=== PATIENT | female | born 1965 | race Caucasian/White ===

== ENCOUNTER → 2020-04-17 16:25 | Outpatient (BNVA) | payer OTHER, SELFPAY | PROVIDERS: Family Provider Family Medicine; Visit Provider Family Medicine | DX: E03.9 Hypothyroidism, unspecified (principal); F41.9 Anxiety disorder, unspecified; K21.9 Gastro-esophageal reflux disease without esophagitis; I48.0 Paroxysmal atrial fibrillation; G47.10 Hypersomnia, unspecified; K21.0 Gastro-esophageal reflux disease with esophagitis | CPT/HCPCS: 84439; 84443; 84481 ==

== ENCOUNTER 2020-10-13 13:43 | Outpatient (CLI) | payer OTHER, SELFPAY ==
--- NOTE | 2020-10-13 13:50 | MM_ITS ---
WS: [id number] BILATERAL DIGITAL SCREENING MAMMOGRAPHY WITH CAD CLINICAL INFORMATION: SCREENING HISTORY: Screening mammogram. No current complaints. COMPARISON: TECHNIQUE: Bilateral CC and MLO views. FINDINGS: Bilateral breast implants. The breasts are composed of heterogeneous fibroglandular density tissue, which can limit the detectio n of small underlying mass lesions. Asymmetric density right breast along the posterior nipple line h as decreased in size and is less dense today. No suspicious mass, asymmetry, calcifications, or archi tectural distortion. No evidence of malignancy. MM/[place] [id number] IMPRESSION: BI-RADS: 2-Benign FOLLOW UP: 1 Year Follow-up Recommend return to annual screening mammography.
== END 2020-10-13 13:44 | disposition home or self-care (01) ==
LOC: RADSHAW 13:47
PROVIDERS: PCP Family Medicine; Visit Provider Obstetrics & Gynecology
DX: Z12.31 Encounter for screening mammogram for malignant neoplasm of breast (principal)
CPT/HCPCS: 77067

== ENCOUNTER → 2021-05-14 10:06 | Outpatient (BNVA) | payer OTHER, SELFPAY | PROVIDERS: PCP Family Medicine; Visit Provider Family Medicine | DX: E03.9 Hypothyroidism, unspecified (principal); Z13.6 Encounter for screening for cardiovascular disorders | CPT/HCPCS: 80053; 80061; 84443 ==

== ENCOUNTER → 2021-10-03 00:01 | Outpatient (BNVA) | payer OTHER, SELFPAY | PROVIDERS: PCP Family Medicine; Visit Provider Family Medicine | DX: R74.8 Abnormal levels of other serum enzymes (principal) | CPT/HCPCS: 80053 ==

== ENCOUNTER 2021-10-16 09:57 | Outpatient (CLI) | payer OTHER, SELFPAY ==
--- NOTE | 2021-10-16 10:30 | MM_ITS ---
WS: [id number] BILATERAL SCREENING MAMMOGRAM WITH DILSHAD DISPLACEMENT VIEWS. CAD PERFORMED. HISTORY: Z12.39 - Encounter for other screening for malignant neoplasm... COMPARISON: 10/13/2020, 03/23/2019 Bilateral craniocaudal and mediolateral like views are performed. Dilshad displacement views in CC and MLO projection also performed. Breasts composition: There are scattered areas of fibroglandular density. Implants are intact and retropectoral. Asymmetry in the anterior lateral LEFT breast is stable. No ne w calcification or mass. MM/[place] [id number] IMPRESSION: BI-RADS: 2-Benign FOLLOW-UP: 1 Year Follow-up
== END 2021-10-16 09:58 | disposition home or self-care (01) ==
LOC: RADSHAW 09:59
PROVIDERS: PCP Family Medicine; Visit Provider Nurse Practitioner Women's Health
DX: Z12.39 Encounter for other screening for malignant neoplasm of breast (principal)
CPT/HCPCS: 77067

== ENCOUNTER → 2022-05-13 09:33 | Outpatient (BNVA) | payer OTHER, SELFPAY | PROVIDERS: PCP Family Medicine; Visit Provider Family Medicine | DX: K21.9 Gastro-esophageal reflux disease without esophagitis (principal); E03.9 Hypothyroidism, unspecified; F41.9 Anxiety disorder, unspecified; I48.0 Paroxysmal atrial fibrillation; Z13.1 Encounter for screening for diabetes mellitus; Z13.6 Encounter for screening for cardiovascular disorders; G47.00 Insomnia, unspecified | CPT/HCPCS: 80053; 80061; 84439; 84443; 84481 ==

== ENCOUNTER → 2022-06-05 14:10 | Outpatient (BNVA) | payer OTHER, SELFPAY | PROVIDERS: PCP Family Medicine; Visit Provider Nurse Practitioner Women's Health | DX: Z01.419 Encounter for gynecological examination (general) (routine) without abnormal findings (principal); N95.0 Postmenopausal bleeding | CPT/HCPCS: 87624 ==

== ENCOUNTER → 2022-06-07 14:28 | Outpatient (BNVA) | payer OTHER, SELFPAY | PROVIDERS: PCP Family Medicine; Visit Provider Nurse Practitioner Women's Health | DX: N95.0 Postmenopausal bleeding (principal) | CPT/HCPCS: 76830 ==

== ENCOUNTER → 2022-06-17 10:28 | Outpatient (BNVA) | payer OTHER, SELFPAY | PROVIDERS: PCP Family Medicine; Visit Provider Family Medicine | DX: N17.9 Acute kidney failure, unspecified (principal); N95.0 Postmenopausal bleeding | CPT/HCPCS: 80048 ==

== ENCOUNTER 2022-07-02 12:54 | Day surgery (SDC) | payer OTHER, SELFPAY ==
[2022-07-01 13:12] VITALS: BMI 29.7
[2022-07-02] VITALS (7 sets, daily range): BP systolic 123–162; BP diastolic 75–100; PULSE 72–102; RESP 16–18; TEMP 36.2–36.7; O2SAT 97–100
--- NOTE | 2022-07-02 12:32 | ANES.PREANE2 ---
Pre-Anesthetic Assessment Height/Weight: Height 1.65 m Weight 81.193 kg Operation Date: 07/02/22 14:25 Proposed Procedures p Hysteroscopy, dilation and curettage with Myosure 34661, 28858, 42117,R93.89,N95.0(Not Applicable) - Kristen Michaels MD s Dilation And Curettage (D&C)(Not Applicable) - Kristen Michaels MD Familial anesthetic complications: none Was Beta Daniella taken within 24 hours: N/A Was Clonidine taken within 24 hours: N/A Social No alcohol and No tobacco Exam alert, oriented x 3, clear to auscultation bilaterally and regular rate & rhythm Airway Submandibular: within normal limits Cervical ROM: within normal limits Mallampati: Class II Dentition: full CV/HEM Atrial Fibrillation and Hypertension GI Gastroesophageal Reflux Disease Metabolic Thyroid Disease Neuropsych Anxiety and Depression Anesthetic Plan ASA status: 3 Anesthesia: General Medications/Allergies Home Medications Medication Instructions Recorded Confirmed Last Taken Type aspirin 325 mg tablet 325 mg PO DAILY 04/17/20 07/01/22 Unknown History multivitamin 1 tab PO DAILY 04/17/20 07/01/22 Unknown History estradiol-norethindrone acet 0.5 1 tab PO DAILY #84 tabs 12/25/21 07/01/22 Unknown Rx mg-0.1 mg tablet diltiazem HCl 180 mg 180 mg PO DAILY 90 days #90 caps 05/13/22 07/01/22 Unknown Rx capsule,extended release 24 hr duloxetine 30 mg capsule,delayed 30 mg PO DAILY 90 days #90 caps 05/13/22 07/01/22 Unknown Rx release duloxetine 60 mg capsule,delayed 60 mg PO DAILY 90 days #90 caps 05/13/22 07/01/22 Unknown Rx release levothyroxine 50 mcg tablet 50 mcg PO DAILY 90 days #90 tabs 05/13/22 07/01/22 Unknown Rx pantoprazole 40 mg tablet,delayed 40 mg PO BID 90 days #180 tabs 05/13/22 07/01/22 Unknown Rx release Allergies Allergy/AdvReac Type Severity Reaction Status Date / Time No Known Allergies Allergy Verified 07/01/22 13:07 [facility] Anesthesia Medical History Acquired hypothyroidism Anxiety GERD (gastroesophageal reflux disease) Patient had an EGD in follow-up 2018 which showed gastritis. When she weans down on the PPI she has recurrent symptoms. We will continue current PPI. She uses Carafate only for occasional flareups from food. Plan for repeat EGD in 2 years for monitoring. History of vitamin D deficiency No pertinent past medical history neghx:htn,dm,dvt/pe PCP: Beatrice Naranjo Paroxysmal atrial fibrillation Surgical History H/O breast augmentation (~2011) Saline, under the muscle History of elbow surgery (~2018) Left elbow surgery with bursa removal [place] [facility] [place] History of hysteroscopy (~07/2018) Hysteroscopy, D&C, polypectomy. Benign findings. [facility] History of tubal ligation (~1988) Hx of cataract surgery Bilateral S/P ACL repair (~10/2016) Arthroscopic right knee. S/P gastric bypass (03/08/18) Laparoscopic gastric sleeve. Performed in [place]. Family History Mother Hypertension Hyperlipidemia Cancer Lung CA Grandmother Hypertension Maternal Hyperlipidemia Maternal Heart disease Maternal Family/Other No problems noted. Sister Thyroid disease Denies family history of Colon cancer Ovarian cancer Diabetes Breast cancer Uterine cancer Stroke Social History Smoking and tobacco status: former smoker Other details last substance use: Denies drug use Female Reproductive History Spontaneous abortions: No Data Anesthesia Cardiac Studies: No Data to Display
[2022-07-02] MEDS: sodium chloride 0.9% 1,000 ML 30 ML IV (13:25)
--- NOTE | 2022-07-02 13:32 | W.PM.OPSUD ---
Surgery/Procedure H&P Update DATE OF PROCEDURE: July 02, 2022 DATE H&P PERFORMED: 06/27/22 H&P UPDATE INFORMATION: I have reviewed H&P completed within last 30 days, I have examined patient prior to procedure and No changes to prior documentation PREOP DIAGNOSIS: pmb, thickened endometrium PLANNED PROCEDURE: Operation Date: 07/02/22 14:25 Proposed Procedures p Hysteroscopy, dilation and curettage with Myosure 36803, 52464, 20398,R93.89,N95.0(Not Applicable) - Kristen Michaels MD s Dilation And Curettage (D&C)(Not Applicable) - Kristen Michaels MD Related Problem List Diagnoses (1) Thickened endometrium: (2) Postmenopausal bleeding:
[2022-07-02] MEDS: ceFAZolin 2,000 MG in sodium chloride 0.9% (plus) 50 ML 100 MG IV (13:52)
--- NOTE | 2022-07-02 14:32 | PM.OP ---
Operative Report Date of procedure: July 02, 2022 Pre-op diagnosis: Preop Diagnosis pmb, thickened endometrium Post-op diagnosis: same Post-op findings: 7 week sized uterus with a large right fundal fibroid Procedure done: hysteroscopy, dilation and curettage with myosure Specimens removed/disposition: endometrial curettings, fibroid to pathology Surgeon: Kristen Michaels Anesthesia: General Estimated blood loss (mL): 20 IV fluids (mL): 500 Complications: none Findings: hysteroscopy deficit: 760 ml Condition: stable Disposition: PACU Procedure: The patient was taken to the operating room where monitored anesthesia was administered and to be adequate. She was prepped and draped in the normal sterile fashion in the dorsal lithotomy position in [facility]. A weighted speculum was placed into the vagina and the anterior lip of the cervix grasped with a single-tooth tenaculum. The uterus was sounded to 7 cm. The cervix was dilated to 16 Wolof. The hysteroscope was advanced into the endometrial cavity. There was a thickened endometrium visualized. The MyoSure device was activated and the tissue was removed. There was an area at the right fundus where endometrium was removed and a large fibroid was unroofed. I took a portion of the fibroid out and left the remainder of the fibroid, due to the large size. Pictures were taken pre and post procedure. All instruments were removed. The patient tolerated the procedure well. Sponge lap and needle counts were correct x3. She was taken to the recovery room in stable condition.
--- NOTE | 2022-07-02 14:39 | PM.DCS ---
Discharge Providers Date of Admission: 07/02/22 Date of Discharge: July 02, 2022 Attending Provider at Discharge: Kristen Michaels MD Primary Care Provider: Caridad Naranjo MD Diagnoses at Discharge Discharge Diagnosis (1) Thickened endometrium: Status: Acute (2) Postmenopausal bleeding: Status: Acute Hospital Course Hospital Course The patient was admitted for outpatient surgery. She did well postoperatively and was ready for discharge. Discharge Data Studies Completed and Pending Pending at discharge Category Date Time Status ES surgery / GI images Routine Exams 07/02/22 13:41 Ordered Pathology: Surgical [PTH] Routine Pth 07/02/22 14:37 Ordered Vitals Last Vital Signs Temp 98.1 F 07/02/22 13:13 Pulse 78 07/02/22 13:13 Resp 16 07/02/22 13:13 BP 162/96 07/02/22 13:13 Pulse Ox 97 07/02/22 13:13 O2 Del Method 07/02/22 13:13 O2 Flow Rate 6 07/02/22 14:35 Discharge Plan Discharge Patient Disposition: Home Condition: Stable Prescriptions: Continued aspirin 325 mg tablet 325 mg PO DAILY multivitamin Tablet 1 tab PO DAILY pantoprazole 40 mg tablet,delayed release (DR/EC) 40 mg PO BID 90 Days Qty: 180 3RF levothyroxine 50 mcg tablet 50 mcg PO DAILY 90 Days Qty: 90 3RF duloxetine 30 mg capsule,delayed release(DR/EC) 30 mg PO DAILY 90 Days Qty: 90 3RF Rx Instructions: take with 60mg daily duloxetine 60 mg capsule,delayed release(DR/EC) 60 mg PO DAILY 90 Days Qty: 90 3RF Rx Instructions: take with 30mg diltiazem HCl 180 mg capsule,extended release 24hr 180 mg PO DAILY 90 Days Qty: 90 3RF estradiol-norethindrone acet 0.5-0.1 mg tablet 1 tab PO DAILY Qty: 84 2RF Discharge Orders: Discharge Order (Routine); Ordered 07/02/22 Ordered By: Kristen Michaels Discharge Attestations Time Spent in Discharge Care*: less than 30 min Quality Metrics Clinical Quality Measures [ No reported AMI, CVA or VTE this stay] Coding Level of Care Code Acute Chg FW DC note Diagnoses Thickened endometrium R93.89 Postmenopausal bleeding N95.0
[2022-07-02] MEDS: ondansetron 2 mg/ML SDV 2 mL 4 MG IVP (15:06)
--- NOTE | 2022-07-02 15:52 | ANE.PACU2 ---
Inpatient post-anesthesia follow up: Airway intact: Yes Vital signs: Temperature 97.9 F Pulse Rate 84 Respiratory Rate 17 Blood Pressure 145/92 Pulse Oximetry 97 Oxygen Delivery Me thod Room Air Oxygen Flow Rate 6 Fraction of Inspir ed Oxygen Hydration adequate: Yes Nausea and vomiting: No Pain level: 2 Mental status: Baseline
== END 2022-07-02 15:40 | disposition home or self-care (01) ==
PROVIDERS: PCP Family Medicine; Visit Provider Obstetrics & Gynecology
PROC: 0UDB8ZZ Extraction of Endometrium, Via Natural or Artificial Opening Endoscopic (ICD-10-PCS; CPT 58558; principal; 2022-07-02 14:15)
PROC: (CPT 58120; 2022-07-02 14:15)
DX: R93.89 Abnormal findings on diagnostic imaging of other specified body structures (principal); N95.0 Postmenopausal bleeding; I10 Essential (primary) hypertension; F41.9 Anxiety disorder, unspecified; F32.A Depression, unspecified; Z79.82 Long term (current) use of aspirin; E03.9 Hypothyroidism, unspecified; E55.9 Vitamin D deficiency, unspecified; I48.0 Paroxysmal atrial fibrillation; Z87.891 Personal history of nicotine dependence
CPT/HCPCS: 58558; 88305; J1100; J2250; J2405; J2704; J3010; J7030

== ENCOUNTER → 2023-04-30 10:16 | Outpatient (BNVA) | payer OTHER, SELFPAY | PROVIDERS: PCP Family Medicine; Visit Provider Family Medicine | DX: K21.9 Gastro-esophageal reflux disease without esophagitis (principal); E03.9 Hypothyroidism, unspecified; F41.9 Anxiety disorder, unspecified; I10 Essential (primary) hypertension; I48.0 Paroxysmal atrial fibrillation; F51.05 Insomnia due to other mental disorder; F99 Mental disorder, not otherwise specified; Z13.220 Encounter for screening for lipoid disorders; Z13.6 Encounter for screening for cardiovascular disorders | CPT/HCPCS: 80053; 80061; 84439; 84443; 84481 ==

== ENCOUNTER → 2023-11-11 08:50 | Outpatient (BNVA) | payer OTHER, SELFPAY | PROVIDERS: PCP Family Medicine; Visit Provider Family Medicine | DX: S46.211A Strain of muscle, fascia and tendon of other parts of biceps, right arm, initial encounter (principal); X58.XXXA Exposure to other specified factors, initial encounter | CPT/HCPCS: 73030 ==

== ENCOUNTER → 2023-12-05 08:53 | Outpatient (BNVA) | payer OTHER, SELFPAY | PROVIDERS: PCP Family Medicine; Referring Provider Family Medicine; Visit Provider Nurse Practitioner | DX: M75.21 Bicipital tendinitis, right shoulder; R29.898 Other symptoms and signs involving the musculoskeletal system | CPT/HCPCS: 73030 ==

== ENCOUNTER → 2024-01-08 08:43 | Outpatient (BNVA) | payer OTHER, SELFPAY | PROVIDERS: PCP Family Medicine; Visit Provider Family Medicine | DX: E03.9 Hypothyroidism, unspecified (principal); I10 Essential (primary) hypertension; I48.0 Paroxysmal atrial fibrillation; J44.9 Chronic obstructive pulmonary disease, unspecified | CPT/HCPCS: 80053; 80061; 83735; 84439; 84443; 84481; 85025 ==

== ENCOUNTER 2024-02-06 09:54 | Outpatient (CLI) | payer OTHER, SELFPAY ==
--- NOTE | 2024-02-06 10:30 | MM_ITS ---
WS: [id number] BILATERAL SCREENING DIGITAL BREAST MAMMOGRAPHY WITH DILSHAD DISPLACEMENT VIEWS. CAD PERFORMED. HISTORY: SCREENING COMPARISON: 10/16/2021, 10/13/2020 Bilateral craniocaudal and mediolateral oblique views are performed with tomosynthesis and SM. Dilshad displacement views in CC and MLO projection also performed. Breasts composition: There are scattered areas of fibroglandular density. Retropectoral implants are intact. Mild asymmetry posterior to the RIGHT nipple. No suspicious calcif ication or mass. IMPRESSION: MM/[place] [id number] BI-RADS: 2-Benign FOLLOW-UP: 1 Year Follow-up
== END 2024-02-06 09:55 | disposition home or self-care (01) ==
LOC: RAD 09:54
PROVIDERS: PCP Family Medicine; Visit Provider Nurse Practitioner Women's Health
DX: Z12.31 Encounter for screening mammogram for malignant neoplasm of breast (principal)
CPT/HCPCS: 77063; 77067

== ENCOUNTER → 2024-02-11 13:21 | Outpatient (BNVA) | payer OTHER, SELFPAY | PROVIDERS: PCP Family Medicine; Visit Provider Nurse Practitioner Women's Health | DX: Z12.4 Encounter for screening for malignant neoplasm of cervix (principal) | CPT/HCPCS: 87624 ==

== ENCOUNTER → 2024-04-15 09:14 | Outpatient (BNVA) | payer OTHER, SELFPAY | PROVIDERS: PCP Family Medicine; Referring Provider Family Medicine; Visit Provider Family Medicine | DX: I10 Essential (primary) hypertension (principal) | CPT/HCPCS: 80048 ==

== ENCOUNTER 2024-04-29 13:30 | Outpatient (CLI) | payer OTHER, SELFPAY ==
--- NOTE | 2024-04-29 13:45 | MR_ITS ---
WS: [id number] MRI RIGHT SHOULDER HISTORY: Right shoulder pain COMPARISON: None available. TECHNIQUE: Multiplanar sequences of the shoulder joint are submitted. Mild AC joint arthritis. Small osteophytes along the distal clavicle and adjacent acromion. There is small amount of fluid in the subacromial and subdeltoid bursa. There is very mild subacromial impinge ment. No os acromion. Normal position of the biceps tendon. Normal position of the humeral head. There is increased T2 signal in the distal 3 to 4 cm of the supr aspinatus tendon. At the supraspinatus tendon insertion site there is a rotator cuff tendon tear whic h is predominantly along the inferior articular surface. There is a small portion of the tear which a ppears to extend through the full-thickness tendon. Additional more proximal tendinopathy. Subscapula ris and infraspinatus tendons are normal. Normal teres minor. No atrophy or edema in the rotator cuff muscles. Normal labrum. MR/MR shoulder RT wo con* [id number] IMPRESSION: 1. Small insertion site tear of the supraspinatus tendon. No retraction of the tendon. Additional tendinopathy of the more proximal tendon. 2. Mild AC joint arthritis.
== END 2024-04-29 13:31 | disposition home or self-care (01) ==
LOC: RAD 13:30
PROVIDERS: PCP Family Medicine; Visit Provider Nurse Practitioner
DX: M25.511 Pain in right shoulder (principal); G89.29 Other chronic pain; R29.898 Other symptoms and signs involving the musculoskeletal system; M75.101 Unspecified rotator cuff tear or rupture of right shoulder, not specified as traumatic; M13.811 Other specified arthritis, right shoulder
CPT/HCPCS: 73221

== ENCOUNTER 2024-05-11 06:00 | Outpatient (RCR) | payer OTHER, SELFPAY | END 2024-05-30 23:59 | disposition home or self-care (01) | LOC: MPT 06:00 | PROVIDERS: Visit Provider Family Medicine | DX: M54.2 Cervicalgia (principal) | CPT/HCPCS: 97110; 97140; 97162; G0283 ==

== ENCOUNTER 2024-05-31 06:00 | Outpatient (RCR) | payer OTHER, SELFPAY | END 2024-06-30 23:59 | disposition home or self-care (01) | LOC: MPT 06:00 | PROVIDERS: Visit Provider Family Medicine | DX: M54.2 Cervicalgia (principal) | CPT/HCPCS: 97110; 97140; G0283 ==

== ENCOUNTER → 2024-06-14 09:50 | Outpatient (BNVA) | payer OTHER, SELFPAY | PROVIDERS: Visit Provider Nurse Practitioner | DX: G89.29 Other chronic pain (principal); M25.511 Pain in right shoulder | CPT/HCPCS: 36415; 80053; 81001; 85025 ==

== ENCOUNTER 2024-07-09 13:05 | Outpatient (CLI) | payer OTHER, SELFPAY ==
--- NOTE | 2024-07-09 13:00 | XR_ITS ---
WS: [id number] SCREENING DEXA SCAN [employer] CLINICAL INFORMATION: Z78.0 - Asymptomatic menopausal state COMPARISON: None. FINDINGS: The L1-L4 bone mineral density measures 0.993 g/cm2. This corresponds to a T score score of -1.6 and Z score of -0.4. Left femoral neck bone mineral density measures 0.778 g/cm2. This corresponds to a T score of -1.8 an d Z score of -0.9. Right femoral neck bone mineral density measures 0.781 g/cm2. This corresponds to a T score -1.8of an d Z score of -0.9. Mean femoral neck bone mineral density measures 0.779 g/cm2. This corresponds to a T score of -1.8 an d Z score of -0.9. XR/XR DEXA axial skeleton* [id number] IMPRESSION: Osteopenia lumbar spine. Osteopenia femoral necks. Patient's FRAX calculated 10 year probability for major osteoporotic fracture i s 10.0% and osteoporotic hip fracture is 1.5%.
== END 2024-07-09 13:06 | disposition home or self-care (01) ==
LOC: RAD 13:06
PROVIDERS: Visit Provider Nurse Practitioner Women's Health
DX: Z13.820 Encounter for screening for osteoporosis (principal); Z78.0 Asymptomatic menopausal state; M85.88 Other specified disorders of bone density and structure, other site
CPT/HCPCS: 77080

== ENCOUNTER → 2024-11-09 09:05 | Outpatient (BNVA) | payer OTHER, SELFPAY | PROVIDERS: PCP Family Medicine; Visit Provider Family Medicine | DX: I10 Essential (primary) hypertension (principal); E03.9 Hypothyroidism, unspecified | CPT/HCPCS: 80053; 80061; 84439; 84443; 84481; 85025 ==

== ENCOUNTER 2025-02-16 08:57 | Outpatient (CLI) | payer OTHER, SELFPAY ==
--- NOTE | 2025-02-16 09:04 | MM_ITS ---
WS: [id number] BILATERAL SCREENING DIGITAL BREAST MAMMOGRAPHY WITH DILSHAD DISPLACEMENT VIEWS. CAD PERFORMED. HISTORY: SCREENING COMPARISON: 02/06/2024, 10/16/2021 Bilateral craniocaudal and mediolateral oblique views are performed with tomosynthesis and SM. Dilshad displacement views in CC and MLO projection also performed. Breasts composition: There are scattered areas of fibroglandular density. No suspicious masses or calcifications. Implants are intact and retropectoral. No distortion or suspicious grouping of calcifications. MM/MM scr BI tomosynthesis [id number] IMPRESSION: BI-RADS: 2 - Benign. FOLLOW-UP: 1 Year Follow-up
== END 2025-02-16 08:58 | disposition home or self-care (01) ==
PROVIDERS: PCP Family Medicine; Visit Provider Nurse Practitioner Women's Health
DX: Z12.31 Encounter for screening mammogram for malignant neoplasm of breast (principal); N95.1 Menopausal and female climacteric states; R41.89 Other symptoms and signs involving cognitive functions and awareness; R53.83 Other fatigue; R92.323 Mammographic fibroglandular density, bilateral breasts; Z98.82 Breast implant status
CPT/HCPCS: 77063; 77067; 82306; 82670; 82728; 83540

== ENCOUNTER → 2025-10-12 09:46 | Outpatient (BNVA) | payer OTHER, SELFPAY | PROVIDERS: PCP Family Medicine; Visit Provider Nurse Practitioner Women's Health | DX: N92.6 Irregular menstruation, unspecified (principal); R41.89 Other symptoms and signs involving cognitive functions and awareness | CPT/HCPCS: 82670; 84270; 84402; 84403 ==

== ENCOUNTER → 2025-11-11 13:46 | Outpatient (BNVA) | payer OTHER, SELFPAY | PROVIDERS: PCP Family Medicine; Visit Provider Nurse Practitioner Women's Health | DX: R68.82 Decreased libido (principal) | CPT/HCPCS: 84403 ==